=== PATIENT | male | born 1995 | race Caucasian/White ===

== ENCOUNTER 2018-05-16 11:19 | Emergency (ER) | payer BC ==
--- NOTE | 2018-05-16 11:25 | PDOC ---
Attending Attestation - Resident Resident Name: Dong Sigala - ED Attending Attestation I have performed the following: I have examined & evaluated the patient, The case was reviewed & discussed with the resident, I agree w/resident's findings & plan, Exceptions are as noted - HPI HPI: 05/16/18 14:37 Agree with Residents HPI - Physicial Exam PE: 05/16/18 14:37 Agree with Residents PE - Medical Decision Making 05/16/18 14:37 Patient stubbed her left toe. X-ray negative for acute fracture dislocation given pain body taped place and hard sole shoe provided with orthopedic follow-up. Findings, the need for follow-up and strict return instructions discussed patient.
[2018-05-16 11:38] VITALS: BP 147/75; PULSE 93; TEMP 97.6; BMI 32.5
--- NOTE | 2018-05-16 11:45 | PDOC ---
History of Present Illness - General Chief Complaint: Injury Stated Complaint: LEFT 3RD TOE INJURY Time Seen by Provider: 05/16/18 11:24 History Source: Patient Exam Limitations: No Limitations - History of Present Illness Initial Comments: 05/16/18 11:38 23 yo M with no pmhx presents to the ED with left 3rd toe pain after hitting it against the corner wall at his home while walking 2 days ago. He denies worsening of pain. The pain is located approximately at the dorsal and ventral aspects of the third digit toe without loss of motor function, sensation, and inability to walk. Denies the following: fever, chills, visual changes, headaches, SOB, chest pain, abdominal pain, ataxia, dysuria, hematuria, diarrhea , nausea, vomiting, and leg pain/swelling. Pmhx: Refer to above Shx: None Meds: amoxicillin and ibuprofen (for an upcoming root canal) Allergies: NKDA Social: Denies tobacco, alcohol, and substance abuse Past History - Past Medical History Allergies/Adverse Reactions: Allergies Allergy/AdvReac Type Severity Reaction Status Date / Time No Known Allergies Allergy Verified 05/16/18 11:21 Home Medications: Ambulatory Orders Amoxicillin - [Amoxicillin 500mg Capsule -] 500 mg PO TID 05/16/18 Ibuprofen 600 mg PO PRN PRN 05/16/18 COPD: No - Suicide/Smoking/Psychosocial Hx Smoking History: Never smoked Have you smoked in the past 12 months: No Information on smoking cessation initiated: No Hx Alcohol Use: No Drug/Substance Use Hx: No Substance Use Type: None Review of Systems - Review of Systems Able to Perform ROS?: Yes Is the patient limited Sinhala proficient: No Constitutional: No: Chills, Diaphoresis, Fever, Weakness HEENTM: No: Recent change in vision, Ear Pain, Nose Pain, Throat Pain, Mouth Pain, Difficulty Swallowing Respiratory: No: Cough, Shortness of Breath, SOB at Rest Cardiac (ROS): No: Chest Pain, Irregular Heart Rate, Lightheadedness, Palpitations ABD/GI: No: Constipated, Diarrhea, Nausea, Poor Appetite, Poor Fluid Intake, Rectal Bleeding, Vomiting, Abdominal cramping, Tarry Stools : No: Burning, Dysuria, Frequency, Hematuria Musculoskeletal: Yes: Other (left toe pain). No: Back Pain Integumentary: No: Bruising, Lesions, Pallor, Rash Neurological: No: Headache, Numbness, Paresthesia, Tremors, Weakness, Unsteady Gait, Ataxia, Dizziness Psychiatric: No: Stressors Endocrine: No: Unexplained Weight Gain Hematologic/Lymphatic: No: Anemia *Physical Exam - Vital Signs Last Vital Signs Temp Pulse Resp BP Pulse Ox 97.6 F 93 H 20 147/75 100 05/16/18 11:20 05/16/18 11:20 05/16/18 11:20 05/16/18 11:20 05/16/18 11:20 - Physical Exam General Appearance: Yes: Nourished, Appropriately Dressed, Obese. No: Apparent Distress HEENT: positive: EOMI, AMY, Normal Voice, Symmetrical, Hearing Grossly Normal. negative: Scleral Icterus (R), Scleral Icterus (L), Muffled/Hoarse voice, Nasal Congestion, Hearing Decreased, Excessive drooling Neck: positive: Trachea midline. negative: Tender, Lymphadenopathy (R), Lymphadenopathy (L), Tender lateral, Tender midline Respiratory/Chest: positive: Lungs Clear, Normal Breath Sounds. negative: Chest Tender, Respiratory Distress, Accessory Muscle Use, Paradoxal Breathing, Crackles, Rales, Rhonchi, Stridor, Wheezing Cardiovascular: positive: Regular Rhythm, Regular Rate, S1, S2. negative: Systolic Murmur Gastrointestinal/Abdominal: positive: Normal Bowel Sounds, Flat, Soft. negative : Tender, Distended Lymphatic: negative: Adenopathy Musculoskeletal: positive: Normal Inspection. negative: CVA Tenderness, Vertebral Tenderness Extremity: positive: Normal Capillary Refill, Normal Inspection, Normal Range of Motion, Tender (left third toe tenderness to palpation in the dorsal and ventral aspect at the PIP. ecchymosis at the ventral and dorsal aspect of the PIP of third left toe. ). 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 Initial vitals: Initial Vital Signs Temp Pulse Resp BP Pulse Ox 97.6 F 93 H 20 147/75 100 05/16/18 11:20 05/16/18 11:20 05/16/18 11:20 05/16/18 11:20 05/16/18 11:20 work up: patient presents with left third toe pain after hitting it against the wall while walking. no ataxia, neural deficits, and swelling noted. some bruising noted on the dorsal and ventral aspect at the PIP. will get a xray to r/o fracture. *DC/Admit/Observation/Transfer Diagnosis at time of Disposition: Toe pain, left - Discharge Dispostion Disposition: HOME Decision to Admit order: No - Referrals Referrals: Nabil Le MD [Staff Physician] - - Patient Instructions Printed Discharge Instructions: DI for Toe Fracture Additional Instructions: You were seen in the emergency department for the evaluation of your toe injury. The xray shows no acute fracture or dislocation. Please follow up with your primary medical doctor by next week and follow up with our orthopedics referral (Dr. Le) within 72 hours. Please use the hard sole shoe provided to you for the next 4-6 weeks to provide support. Use tape to keep the toe attached to the adjacent one in order to help it heal. Use ibuprofen and Tylenol for pain management as directed on the bottle. Please return to the emergency department if your pain worsens or you develop new concerning symptoms such as loss of sensation, marked swelling, fever/chills, and inability to walk. Thank you. - Post Discharge Activity
== END 2018-05-16 12:32 | disposition home or self-care (01) ==
LOC: FER 11:19
PROC: 2W3VXYZ Immobilization of Left Toe using Other Device (ICD-10-PCS; principal; 2018-05-16)
DX: M79.675 Pain in left toe(s) (principal); X58.XXXA Exposure to other specified factors, initial encounter; Y93.89 Activity, other specified; Y92.89 Other specified places as the place of occurrence of the external cause
CPT/HCPCS: 73660-TC-LT-FY; 99281-25

== ENCOUNTER 2019-07-13 13:15 | Emergency (ER) | payer BC ==
--- NOTE | 2019-07-13 13:24 | PDOC ---
History of Present Illness - General Chief Complaint: Wound Stated Complaint: PUCTURE TO HEEL OF LEFT FOOT Time Seen by Provider: 07/13/19 13:24 History Source: Patient Exam Limitations: No Limitations - History of Present Illness Initial Comments: 24 yo M presents with puncture wound to the L foot. He states he was walking up the stairs with bare feet, carrying a basket. He did not see that there was a plug that was sitting on a step with the prongs up. He was punctured by one of the prongs. He cannot recall his last tetanus booster. He may have received one in 2016 but is uncertain. No active bleeding. No other injuries. He cleaned it with soap and water prior to arrival. Past History - Past Medical History Allergies/Adverse Reactions: Allergies Allergy/AdvReac Type Severity Reaction Status Date / Time No Known Allergies Allergy Verified 07/13/19 13:17 Home Medications: Ambulatory Orders NK [No Known Home Medication] 07/13/19 COPD: No - Psycho Social/Smoking Cessation Hx Smoking History: Never smoked Have you smoked in the past 12 months: No Hx Alcohol Use: No Drug/Substance Use Hx: No Substance Use Type: None Review of Systems - Review of Systems Able to Perform ROS?: Yes Comments:: GENERAL/CONSTITUTIONAL: No fever or chills. No weakness. MUSCULOSKELETAL: No joint or muscle swelling or pain. No neck or back pain. SKIN: +Puncture wound to the L heel NEUROLOGIC: No headache, vertigo, loss of consciousness, or change in strength/ sensation. HEMATOLOGIC/LYMPHATIC: No anemia, easy bleeding, or history of blood clots. *Physical Exam - Physical Exam GENERAL: Awake, alert, and fully oriented, in no acute distress EXTREMITIES: Normal range of motion, no edema. No clubbing or cyanosis. No cords, erythema, or tenderness NEUROLOGICAL: Cranial nerves II through XII grossly intact. Normal speech, normal gait. Motor and sensation intact SKIN: Warm, dry, normal turgor, no rashes. +Small linear puncture wound to the L foot, heel. No active bleeding. No erythema. Medical Decision Making - Medical Decision Making 07/13/19 13:43 Will give a tetanus booster, as he is unclear when his last shot was, but may have been in 2016. Discharge - Discharge Information Problems reviewed: Yes Clinical Impression/Diagnosis: Puncture wound Condition: Stable Disposition: HOME - Follow up/Referral - Patient Discharge Instructions Patient Printed Discharge Instructions: Tetanus, Diphtheria, and Pertussis Vaccine, DI for Puncture Wound - Post Discharge Activity
[2019-07-13] MEDS ORDERED: DIPHTH,PERTUSS(ACELL),TET 0.5 ML DISP.SYRIN IM ONE ×2 (13:35→13:36)
[2019-07-13 13:36] VITALS: BP 134/84; PULSE 80; TEMP 98.4; BMI 38.0
== END 2019-07-13 13:48 | disposition home or self-care (01) ==
LOC: FER 13:15
PROC: 3E0234Z Introduction of Serum, Toxoid and Vaccine into Muscle, Percutaneous Approach (ICD-10-PCS; principal; 2019-07-13)
DX: S91.332A Puncture wound without foreign body, left foot, initial encounter (principal); X58.XXXA Exposure to other specified factors, initial encounter; Y93.89 Activity, other specified; Y92.89 Other specified places as the place of occurrence of the external cause
CPT/HCPCS: 90715; 99282-25